=== PATIENT | male | born 1955 | race Caucasian/White ===

== ENCOUNTER 2024-04-07 06:46 | Day surgery (SDC) | payer OTHER ==
--- NOTE | 2024-04-06 22:32 | RAD REPORT ---
EXAMINATION: TWO VIEW CHEST XR CLINICAL INDICATION: Male, 69 years old. . Hypertension. Pre-op pending back mass TECHNIQUE: 2 view radiographs of the chest were performed. COMPARISON: No prior exam. FINDINGS: The lungs are well inflated and clear. No pneumothorax or sizable effusion. The heart is normal in si ze. Mediastinal contours are unremarkable. IMPRESSION: No acute or significant abnormalities.
[2024-04-07] MEDS: NA CHLORIDE 0.9% 1,000 ML ONE (07:00)
[2024-04-07] MEDS ORDERED: LIDOCAINE 1% MPF 5 ML VIAL ONE (07:18)
[2024-04-07] MEDS ORDERED: FENTANYL CITR 100 MCG/2 ML ONE (07:18)
[2024-04-07] MEDS ORDERED: propofoL 200 MG/20 ML VIAL IV ONE (07:18)
[2024-04-07] MEDS ORDERED: KETOROLAC 30 MG/ML INJ ONE (07:18)
[2024-04-07] MEDS ORDERED: MIDAZOLAM HCL 2 MG/2 ML INJ ONE (07:18)
[2024-04-07] MEDS: CEFAZOLIN SODIUM 1 GM/VIAL ONE (08:13)
[2024-04-07] MEDS: BUPIVACAINE 0.5% PF 10 ML VIAL ONE ×2 (08:16→08:48)
[2024-04-07] MEDS ORDERED: EPHEDRINE SULF 50 MG/ML VIAL ONE (08:25)
--- NOTE | 2024-04-07 08:53 | P.BOP ---
Preoperative diagnosis: infected back infected back subQ mass with abscess Postoperative diagnosis: same Primary procedure: Excisional biopsy of infected back subQ mass with abscess 5x5cm Estimated blood loss: <10cc Specimen: mass, culture Findings: infected back subQ mass with deep abscess Anesthesia: General Complications: None Drain(s): Other (wet to dry packing) Transferred to: Recovery Room Condition: Good
[2024-04-07 09:33] VITALS: O2SAT 97
[2024-04-07 10:42] VITALS: BP 110/57; TEMP 97.2
--- NOTE | 2024-04-07 14:49 | EKG ---
Test Date: 2024-04-06 Test Time: 15:21:11 Lip Of Shank Cutter: HEIKE MEASUREMENT RESULTS: Intervals: Rate: 68 AL: 170 QRSD: 88 QT: 378 QTc: 401 [place]: P: 23 AL: 170 QRS: 80 T: 25 INTERPRETIVE STATEMENTS: Sinus rhythm with occasional premature ventricular complexes Otherwise normal ECG No previous ECG available for comparison Electronically Signed On 04-07-24 14:46:14 CDT by Mc Amezcua
--- NOTE | 2024-04-07 21:55 | DS ---
Date of Discharge: 04/07/2024 Diagnosis: Infected back subcutaneous mass with abscess. Procedure: Excisional biopsy of infected back subcutaneous mass with abscess drainage. Disposition: Home. Activity: As tolerated. No heavy lifting. Discharge Instructions: Follow up in my office tomorrow to help with dressing changes. Medications: See orders. GARRETT/MIRIAN Voice ID: [id number] Report ID: [id number]
--- NOTE | 2024-04-07 21:55 | OP ---
Date of Procedure: 04/07/2024 Surgeon: Gamal Fabian MD Preoperative Diagnosis: Infected back subcutaneous mass with abscess. Postoperative Diagnosis: Infected back subcutaneous mass with abscess. Procedure: Excisional biopsy of deep infected back subcutaneous mass with abscess, 5 x 5 x 3 cm. Th is goes all the way down to the fascia and the muscle, does not penetrate the muscle. Estimated Blood Loss: Less than 10 cc. Specimens: Mass and culture. Findings: Infected subcutaneous mass with deep abscess involving the fascia and the muscle, and does not penetrate the muscle. Anesthesia: General plus local. Indication: This is a case of a 69-year-old patient who comes to us with infected tender back mass. Benefits, alternatives, and risks of excisional biopsy of mass with drainage of abscess were fully e xplained, which include, but not limited to, infection, bleeding, damage to adjacent structures, anes thesia complication, recurrence, [place], and even . He also understands this may not relieve any sy mptoms. He might need more than one surgical intervention. He may require wound care. He signed a consent. Procedure In Detail: The patient was brought to the operating room, placed in supine position. Anes thesia was done without complication. The patient was placed in lateral decubitus position with prop er protection. Time-out was called. The area was prepped and draped in the usual sterile fashion. We found the area was already starting to drain pus at this moment, so we made a wide excision of [place] t region. We noticed that the mass was present and deep to it was an abscess that goes to the fascia and the muscle, so we have to remove the mass completely. The abscess was drained. Loculations wer e explored opened. Cultures were done. Irrigation was done. Hemostasis was obtained, and the area was packed with wet-to-dry dressing after local anesthetic was applied. Sponge count and instrument counts were correct. The patient tolerated the procedure well. The patient was sent to recovery in stable condition. GARRETT/MIRIAN Voice ID: [id number] Report ID: [id number]
== END 2024-04-07 10:28 | disposition home or self-care (01) ==
LOC: OR 06:46
PROVIDERS: ATTEND Surgery
PROC: 0JB70ZZ Excision of Back Subcutaneous Tissue and Fascia, Open Approach (ICD-10-PCS; principal; 2024-04-07 08:15)
DX: L72.0 Epidermal cyst (principal); L02.212 Cutaneous abscess of back [any part, except buttock and flank]; L03.312 Cellulitis of back [any part except buttock and flank]
CPT/HCPCS: 93005; 87070; 87205; 82947; 88304 ×2; 87075; 71046; 11406; 12032; J2704; J2003; J2250; J3010; J7030; J0690

== ENCOUNTER 2024-09-22 06:05 | Day surgery (SDC) | payer OTHER ==
[2024-09-22] MEDS: NA CHLORIDE 0.9% 1,000 ML ONE (06:37)
[2024-09-22] MEDS ORDERED: propofoL 200 MG/20 ML VIAL IV ONE (07:03)
[2024-09-22] MEDS ORDERED: LIDOCAINE 1% MPF 5 ML VIAL ONE (07:03)
[2024-09-22 09:13] VITALS: TEMP 97.3
[2024-09-22 09:16] VITALS: BP 112/62; O2SAT 98
== END 2024-09-22 10:25 | disposition home or self-care (01) ==
LOC: OR 06:05
PROVIDERS: ATTEND Surgery
PROC: 0DBM8ZX Excision of Descending Colon, Via Natural or Artificial Opening Endoscopic, Diagnostic (ICD-10-PCS; 2024-09-22)
PROC: 0DBK8ZX Excision of Ascending Colon, Via Natural or Artificial Opening Endoscopic, Diagnostic (ICD-10-PCS; principal; 2024-09-22 07:30)
DX: Z12.11 Encounter for screening for malignant neoplasm of colon (principal); K57.30 Diverticulosis of large intestine without perforation or abscess without bleeding; K64.4 Residual hemorrhoidal skin tags; K64.8 Other hemorrhoids; K63.5 Polyp of colon; D12.4 Benign neoplasm of descending colon
CPT/HCPCS: 82947; 88305; 45384; J2704; J2003; J7030